=== PATIENT | female | born 2000 | race African-American/Black ===

== ENCOUNTER 2020-02-15 04:54 | Emergency (ER) | payer OTHER, MEDICAID | END 2020-02-15 07:00 | disposition home or self-care (01) | LOC: ER 04:54 | DX: F12.10 Cannabis abuse, uncomplicated (principal); F32.9 Major depressive disorder, single episode, unspecified; F41.9 Anxiety disorder, unspecified | CPT/HCPCS: 99281 ==

== ENCOUNTER 2020-03-27 00:32 | Emergency (ER) | payer OTHER, MEDICAID ==
[~2020-03-27] VITALS: Ht 162.6 cm; Wt 60.0 kg
[2020-03-27] MEDS ORDERED: OLANZAPINE 10MG TABLET PO SCH (01:30)
[2020-03-27] MEDS ORDERED: LORAZEPAM 2MG/ML CPJ IM ONE (01:45)
[2020-03-27] MEDS ORDERED: OLANZAPINE 10 MG/VIAL IM ONE (01:45)
[2020-03-27 02:46] LABS: BASOPHILS % 0.7 % (0.0-2.0); EOSINOPHILS % 0.2 % (0.0-5.0); HEMATOCRIT. 42.2 % (36.0-48.0); HEMOGLOBIN. 14.4 g/dL (12.0-16.0); MEAN CORPUSCULAR HEMOGLOBIN 31.4 pg (28.0-32.0); MEAN CORPUSCULAR VOLUME 92.1 fL (81.0-99.0); MEAN PLATELET VOLUME 8.6 fl (7.4-10.4); MONOCYTES % 8.4 % (2.0-8.0); NEUTROPHILS % 61.7 % (40.0-76.0); PLATELET 305 x1000/uL (130-400); RED BLOOD CELL COUNT 4.59 mill/uL (4.2-5.4); RED CELL DISTRIBUTION WIDTH 12.8 % (11.6-14.6)
[2020-03-27 02:53] LABS: CHLORIDE 102 mEq/L (98-107)
[2020-03-27 02:56] LABS: ETHANOL BLOOD < 10 mg/dL
[2020-03-27 03:00] LABS: HCG SCREEN NEGATIVE
[2020-03-27 11:34] VITALS: BP 112/71
== END 2020-03-27 12:15 | disposition home or self-care (01) ==
LOC: ER 00:50
DX: F23 Brief psychotic disorder (principal); F12.10 Cannabis abuse, uncomplicated; Z78.1 Physical restraint status
CPT/HCPCS: 36415; 80048; 80307; 80320; 80329; 84703; 85025; 96372; 99285; J3490; G0480